=== PATIENT | female | born 1960 ===

== ENCOUNTER 2019-10-03 08:46 | Outpatient (CLI) | payer OTHER | END 2019-10-03 09:20 | disposition home or self-care (01) | LOC: TOM 08:46 | DX: R51 Headache (principal); J32.8 Other chronic sinusitis ==

== ENCOUNTER 2025-06-19 07:51 | Outpatient (CLI) | payer OTHER ==
[2025-06-19 09:12] LABS: CREATININE SERUM 0.72 mg/dL (0.55-1.02)
== END 2025-06-19 08:10 | disposition home or self-care (01) ==
LOC: LAB 07:51
PROVIDERS: ATTEND Radiology Diagnostic Radiology
DX: R31.9 Hematuria, unspecified (principal)